=== PATIENT | female | born 1955 | race Caucasian/White ===

== ENCOUNTER 2018-05-18 14:41 | Outpatient (CLI) | payer OTHER ==
--- NOTE | 2018-05-19 08:43 | DEXA Report ---
Reason: POST MENOPAUSAL,SCREEN OSTEOPOROSIS Procedure Date: 05/18/2018 Accession Number: [id number] / [id number] Procedure: DEX - Dexa Spine and/or Hip CPT Code: FULL RESULT: EXAM: Dexa Spine and/or Hip DATE: 05/18/2018 3:13 PM CLINICAL HISTORY: POST MENOPAUSAL,SCREEN OSTEOPOROSIS TECHNIQUE: Dual energy x-ray absorptiometry (DXA) was performed on a [employer] System. Regions measured are the AP Spine, femoral neck, and if needed forearm. COMPARISON: None. In accordance with the International Society for Clinical Densitometry (ISCD) guidelines, data from previous exams may be reanalyzed using current recommendations and techniques. This is done to allow a more accurate basis for comparison with the current study. FINDINGS: The data for the lumbar spine is as follows: BMD (g/cm/cm) T-SCORE Z-SCORE REGION L1 1.071 -0.5 0.6 L2 1.093 -0.9 0.2 L3 1.127 -0.6 0.5 L4 1.091 -0.9 0.2 TOTAL 1.097 -0.7 0.4 NOTE: All evaluable vertebrae are used for classification The data for the hip is as follows: BMD (g/cm/cm) T-SCORE Z-SCORE REGION Neck 0.923 -0.8 0.3 TOTAL 0.858 -1.2 -0.3 NOTE: The femoral neck or total proximal femur, whichever is lowest, is used for classification. IMPRESSION: THE WHO CLASSIFICATION BASED ON THE INTERNATIONAL REFERENCE STANDARD IS OSTEOPENIA. THE FRACTURE RISK IS INCREASED. RECOMMENDATION: Patients with diagnosis of osteoporosis or osteopenia should have regular bone mineral density assessment. For those eligible for Medicare, routine testing is allowed once every 2 years. Testing frequency can be increased for patients who have rapidly progressing disease or for those who are receiving medical therapy to restore bone mass. COMMENT: World Health Organization (WHO) definitions for osteoporosis and osteopenia: NORMAL BMD: T-score at -1.0 or higher, fracture risk is low OSTEOPENIA BMD: T-score between -1.0 and -2.5, fracture risk is increased. OSTEOPOROSIS BMD: T-score at -2.5 or lower, fracture risk is high. National Osteoporosis Foundation recommends: 1. Obtain adequate dietary calcium (at least 1200 mg per day) and vitamin D (400-800 international units per day). 2. Participate, as appropriate, in regular weightbearing and muscle-strengthening exercise. 3. Avoid tobacco use and reduce alcohol and caffeine intake. 4. For more detailed information see the website at www.NOF.org.
== END 2018-05-18 14:42 | disposition home or self-care (01) ==
LOC: DI 14:41
PROVIDERS: ATTEND Naturopath
DX: Z13.820 Encounter for screening for osteoporosis (principal); M85.88 Other specified disorders of bone density and structure, other site; Z78.0 Asymptomatic menopausal state
CPT/HCPCS: 77080

== ENCOUNTER 2020-05-03 16:20 | Outpatient (CLI) | payer OTHER ==
--- NOTE | 2020-05-03 17:12 | XRAY Report ---
PROCEDURE: Knee Standing LT INDICATIONS: LEFT KNEE PAIN TECHNIQUE: 4 views of the left knee, and 1 view of the right knee. COMPARISON: None. FINDINGS: Bones: No acute fractures or dislocations. No suspicious bony lesions. There is mild narrowing of t he medial femorotibial compartments bilaterally. Soft tissues: No knee joint effusions. No suspicious soft tissue calcification. IMPRESSION: No acute osseous abnormality. 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 If there is clinical concern or persistent symptoms, additional imaging such as repeat radiographs or advance d imaging (e.g. CT, MRI) may be helpful for further evaluation. Reviewed by: Erik Call MD on 05/03/2020 5:11 PM PST Approved by: Erik Call MD on 05/03/2020 5:11 PM PST Station ID: [id number]
== END 2020-05-03 23:59 | disposition home or self-care (01) ==
LOC: DI.N 16:20
PROVIDERS: ATTEND Orthopaedic Surgery
DX: M25.562 Pain in left knee (principal); M17.12 Unilateral primary osteoarthritis, left knee

== ENCOUNTER 2020-05-09 15:42 | Outpatient (CLI) | payer OTHER ==
--- NOTE | 2020-05-10 13:01 | Mammography Report ---
BILATERAL DIGITAL SCREENING MAMMOGRAM 3D/2D: 05/09/2020 CLINICAL: Routine screening. Family history of breast cancer. Comparison is made to exams dated: 05/09/2019 mammogram, 04/14/2018 mammogram, 04/12/2017 mammogram, mammogram, 04/01/2015 mammogram, and 03/21/2014 mammogram - [facility]. There are scattered fibroglandular elements in both breasts. There is a possible new 0.3 cm oval equal density asymmetry in the right breast posterior depth super ior region seen on the mediolateral oblique view only. No other significant masses, calcifications, or other findings are seen in either breast. IMPRESSION: INCOMPLETE: NEEDS ADDITIONAL IMAGING EVALUATION The possible new 0.3 cm oval equal density asymmetry in the right breast is indeterminate. Additiona l views with possible ultrasound are recommended. This exam was interpreted at Station ID: [id number]. NOTE: For mammograms, a report in lay terms will be sent to the patient. Approximately 15% of breast malignancies will not be visualized mammographically. In the management of a palpable breast mass, a negative mammogram must not discourage biopsy of a clinically suspicious lesion. Electronically Signed By: Dami Funez M.D. aty/:05/10/2020 09:19:09 ACR BI-RADS Category 0: Incomplete 3340F PARENCHYMAL PATTERN: (A) - The breast(s) demonstrate(s) scattered fibroglandular densities. BI-RADS CATEGORY: (0) - 0 Mammo and [place] [id number] Immediate follow-up LATERALITY: (R)
== END 2020-05-09 15:43 | disposition home or self-care (01) ==
LOC: DI 15:42
DX: Z12.31 Encounter for screening mammogram for malignant neoplasm of breast (principal); Z80.3 Family history of malignant neoplasm of breast; N64.89 Other specified disorders of breast; M25.562 Pain in left knee

== ENCOUNTER 2020-05-28 09:05 | Outpatient (CLI) | payer OTHER ==
--- NOTE | 2020-05-29 15:09 | Ultrasound Report ---
LIMITED ULTRASOUND OF RIGHT BREAST AND AXILLA: 05/28/2020 CLINICAL: Patient returns today to evaluate a focal asymmetry in the right breast. Comparison is made to exams dated: 05/28/2020 mammogram, 05/09/2020 mammogram - [facility], 05/09/2019 mammogram, 04/14/2018 mammogram, 04/12/2017 mammogram, and 04/02/2016 mammogram - [facility]. Color flow ultrasound of the right breast 12 o'clock, and axilla regions was performed. Herrera scale i mages of the real-time examination were reviewed. There is a 0.5 cm x 0.6 cm x 0.3 cm irregular area of fibroglandular tissue in the right breast at 12 o'clock middle depth 3 cm from the nipple. This is surrounded by dense fibrous tissue. This irregu lar area of fibroglandular tissue displays no posterior acoustic shadowing or enhancement. This keira elates with mammography findings. Color flow imaging demonstrates that there is no vascularity prese nt. IMPRESSION: PROBABLY BENIGN The 0.5 cm x 0.6 cm x 0.3 cm irregular area of fibroglandular tissue in the right breast most likely is an island of tissue within fibrous tissue or a lymph node and is probably benign. A follow-up right mammogram and an ultrasound in 6 months is recommended to demonstrate stability. Findings and recommendations were conveyed to the patient at time of exam. This exam was interpreted at Station ID: [id number]. Electronically Signed By: Annamarie valente/:05/28/2020 11:46:51 Ultrasound BI-RADS: 3 Probably benign BI-RADS CATEGORY: (3) - 3 Mammo and [place] [id number] 6 month follow-up LATERALITY: (R)
--- NOTE | 2020-05-29 15:09 | Mammography Report ---
UNILATERAL RIGHT DIGITAL DIAGNOSTIC MAMMOGRAM 3D/2D: 05/28/2020 CLINICAL: Patient returns today to evaluate a focal asymmetry in the right breast. Comparison is made to exams dated: 05/09/2020 mammogram - [facility], 05/09/2019 [facility] mogram, 04/14/2018 mammogram, 04/12/2017 mammogram, and 04/02/2016 mammogram - [facility]. There are scattered fibroglandular elements in right breast. There is a 4 mm round equal density asymmetry in the right breast posterior depth superior region see n best on the mediolateral oblique view and confirmed with additional views. No other significant masses or calcifications are seen in the breast. IMPRESSION: INCOMPLETE: NEEDS ADDITIONAL IMAGING EVALUATION The 4 mm round equal density asymmetry in the right breast remains indeterminate. An ultrasound is r ecommended. This was performed immediately following this exam. This exam was interpreted at Station ID: [id number]. NOTE: For mammograms, a report in lay terms will be sent to the patient. Approximately 15% of breast malignancies will not be visualized mammographically. In the management of a palpable breast mass, a negative mammogram must not discourage biopsy of a clinically suspicious lesion. Electronically Signed By: Annamarie valente/:05/28/2020 11:43:06 ACR BI-RADS Category 0: Incomplete 3340F PARENCHYMAL PATTERN: (A) - The breast(s) demonstrate(s) scattered fibroglandular densities. BI-RADS CATEGORY: (0) - 0 Ultrasound [id number] Immediate follow-up LATERALITY: (B)
== END 2020-05-28 09:06 | disposition home or self-care (01) ==
LOC: DI 09:05
PROVIDERS: ATTEND Naturopath
DX: R92.2 Inconclusive mammogram (principal); N63.15 Unspecified lump in the right breast, overlapping quadrants

== ENCOUNTER 2020-06-03 13:57 | Outpatient (CLI) | payer OTHER ==
--- NOTE | 2020-06-03 16:22 | Ultrasound Report ---
PROCEDURE: Head or Neck Soft Tissue INDICATIONS: GOITER, ENLARGED THYROID TECHNIQUE: Real-time scanning was performed of the thyroid gland, with image documentation. COMPARISON: None FINDINGS: Right: Thyroid lobe measures 7.2 x 2.8 x 2.7 cm, and is homogeneous in echotexture. Left: Thyroid lobe measures 5.1 x 1.5 x 1.6 cm, and is homogenous in echotexture. Isthmus: 3 mm thick. Nodule number: One Location: Right inferior Size: 3.3 x 3.1 x 2.8 cm. Composition: Solid Echogenicity: Isoechoic Shape: wider than tall. Margins: Smooth Echogenic foci: Macrocalcifications Total points: 4 ACR TI-RADS category: 4 Nodule number: Two Location: Right mid lobe Size: 1.3 x 1.3 x 1.1 cm. Composition: Solid Echogenicity: Hypoechoic Shape: wider than tall. Margins: Smooth Echogenic foci: None Total points: 4 ACR TI-RADS category: 4 Nodule number: Three Location: Left mid lobe Size: 1.1 x 0.9 x 0.8 cm. Composition: Solid Echogenicity: Isoechoic Shape: wider than tall. Margins: Lobulated Echogenic foci: Macrocalcifications Total points: 4 ACR TI-RADS category: 4 Nodule number: Four Location: Left inferior posterior lobe Size: 0.9 x 0.8 x 0.8 cm. Composition: Size Echogenicity: Hypoechoic Shape: wider than tall. Margins: Lobulated Echogenic foci: None Total points: 4 ACR TI-RADS category: 4 IMPRESSION: 1. Lesion 1 is category 4. Secondary to size, fine-needle aspiration is recommended. 2. Lesions 2 and 3 are considered category 4. Secondary to size, follow-up at 1, 2, 3 and 5 years is recommended. 3. Lesion 4 is also category 4. However, secondary to small size, no additional follow-up is recommen ded unless indicated. ACR TI-RADS definitions and recommendations: TI-RADS 1 (benign): 0 points. FNA not needed. TI-RADS 2 (not suspicious): 2 points. FNA not needed. TI-RADS 3 (mildly suspicious): 3 points. ? FNA if 2.5 cm or larger, follow up if 1.5 cm or larger (at 1, 3, and 5 years). TI-RADS 4 (moderately suspicious): 4-6 points. ? FNA if 1.5 cm or larger, follow up if 1 cm or larger (at 1, 2, 3, and 5 years). TI-RADS 5 (highly suspicious): 7 points or more. ? FNA if 1 cm or larger, follow up if 0.5 cm or larger (every year for 5 years). Reviewed by: Tequila Raines MD on 06/03/2020 4:20 PM PDT Approved by: Tequila Raines MD on 06/03/2020 4:20 PM PDT Station ID: [id number]
== END 2020-06-03 13:58 | disposition home or self-care (01) ==
LOC: DI 13:57
DX: E04.9 Nontoxic goiter, unspecified (principal)

== ENCOUNTER 2020-10-01 07:25 | Outpatient (CLI) | payer MEDICARE ==
--- NOTE | 2020-10-01 10:47 | MRI Report ---
PROCEDURE: Knee LT W/O INDICATIONS: SPRAIN OF LEFT KNEE TECHNIQUE: Noncontrast sagittal PD fast spin echo and T2 fast spin echo with fat saturation, sagittal 3-D spoile d GE with fat saturation; coronal T1 spin echo and PD fast spin echo with fat saturation, and axial P D fast spin echo with fat saturation through the knee. COMPARISON: Left knee radiographs 05/03/2020. FINDINGS: Image quality: Excellent. Menisci: Mild intrasubstance signal is seen within the body and posterior horn of the medial meniscu s without definite extension to articular surface, compatible with intrasubstance degeneration. The l ateral meniscus is intact. There is no meniscal extrusion. Cruciate ligaments: The anterior and posterior cruciate ligaments appear intact. Medial structures: There is mild thickening of the proximal medial collateral ligament with trace martinez rrounding edema, which may represent a subacute to chronic low-grade sprain. The semimembranosus ten don insertions appear intact. Visualized portions of the pes anserinus tendons appear normal. Lateral structures: The lateral collateral ligament, long and short heads of the biceps femoris tend on appear intact. The popliteus tendon appears intact. Iliotibial band appears normal. Anterior structures: The quadriceps and patellar tendons appear intact. Patellar alignment is tawanda l. No femoral trochlear dysplasia or ventral trochlear prominence. No edema in the infrapatellar fa t pad. Bones and cartilage: No bone marrow contusion or acute fracture. There is mild grade 2 chondral mal acia in the weightbearing portion of the medial femoral condyle. The lateral compartment articular ca rtilages are intact. There is full-thickness cartilage loss at the median ridge and medial facet of t he patella and likely the inferior portion of the lateral patellar facet with subchondral edema. Jorge L tional full-thickness cartilage loss is seen in the medial femoral trochlea with subchondral and gamal inal osteophyte formation. Joint space and soft tissues: There is a physiologic amount of joint fluid. A trace medial popliteal cyst is present. There is no medial popliteal cyst. IMPRESSION: 1. Low-grade sprain of the proximal medial collateral ligament is likely subacute to chronic. 2. Mild intrasubstance degeneration in the medial meniscus without a discrete tear. 3. Multifocal full-thickness cartilage loss within the anterior compartment with subchondral edema a nd marginal osteophyte formation. Mild grade II chondromalacia in the medial compartment. Reviewed by: Erik Call MD on 10/01/2020 9:46 AM AYLA Approved by: Erik Call MD on 10/01/2020 9:46 AM AYLA Station ID: [id number]
== END 2020-10-01 07:26 | disposition home or self-care (01) ==
LOC: DI 07:25
PROVIDERS: ATTEND Orthopaedic Surgery Adult Reconstructive Orthopaedic Surgery
DX: S83.412D Sprain of medial collateral ligament of left knee, subsequent encounter (principal); M23.304 Other meniscus derangements, unspecified medial meniscus, left knee; M94.262 Chondromalacia, left knee

== ENCOUNTER 2022-02-13 08:46 | Outpatient (CLI) | payer MEDICARE ==
[2022-02-13 09:30] LABS: THYROID STIMULATING HORMONE 1.73 uIU/mL (0.34-5.60)
[2022-02-13 09:33] LABS: FREE T4 (FREE THYROXINE) 0.81 ng/dL (0.58-1.64)
== END 2022-02-13 08:47 | disposition home or self-care (01) ==
LOC: LAB 08:46
DX: E04.9 Nontoxic goiter, unspecified (principal)
CPT/HCPCS: 36415; 84439; 84443

== ENCOUNTER 2022-04-22 08:01 | Outpatient (CLI) | payer MEDICARE ==
[2022-04-22 08:50] LABS: THYROID STIMULATING HORMONE 0.85 uIU/mL (0.34-5.60)
[2022-04-22 08:52] LABS: FREE T4 (FREE THYROXINE) 0.81 ng/dL (0.58-1.64)
== END 2022-04-22 08:02 | disposition home or self-care (01) ==
LOC: LAB 08:01
PROVIDERS: ATTEND Internal Medicine
DX: R63.5 Abnormal weight gain (principal)
CPT/HCPCS: 36415; 82533; 84439; 84443; 84480

== ENCOUNTER 2022-05-05 09:48 | Outpatient (CLI) | payer MEDICARE ==
[2022-05-07 15:08] LABS: ANTINUCLEAR ANTIBODIES IFA Negative (.)
== END 2022-05-05 09:49 | disposition home or self-care (01) ==
LOC: LAB 09:48
PROVIDERS: ATTEND Physician Assistant
DX: L71.8 Other rosacea (principal)
CPT/HCPCS: 36415; 86038

== ENCOUNTER 2022-06-29 20:49 | Outpatient (CLI) | payer MEDICARE ==
--- NOTE | 2022-06-30 10:16 | Ultrasound Report ---
PROCEDURE: Head or Neck Soft Tissue INDICATIONS: GOITER TECHNIQUE: Real-time scanning was performed of the thyroid gland, with image documentation. COMPARISON: 06/03/2020 FINDINGS: Right: Thyroid lobe measures 6.3 x 2.5 x 2.7 cm, and is heterogeneous in echotexture. Left: Thyroid lobe measures 5.1 x 2.3 x 1.4cm, and is homogenous in echotexture. Isthmus: 3 mm thick. Nodule number: 1 Location: Right lower pole Size: 3.6 x 3.0 x 3.4 cm, previously 3.3 x 3.1 x 2.8 cm. Composition: Solid (2 points). Echogenicity: Hyperechoic (1 point). Shape: wider than tall. Margins: Lobulated / Irregular (2 points). Echogenic foci: Macrocalcification (1 point). Total points: 6 ACR TI-RADS category: Moderately suspicious (4-6 points). Nodule number: 2 Location: Right middle pole Size: 1.1 x 0.8 x 1.3 cm, previously 1.3 x 1.3 x 1.1 cm. Composition: Solid (2 points). Echogenicity: Hypoechoic (2 points). Shape: wider than tall. Margins: Smooth (0 points). Echogenic foci: None (0 points). Total points: 4 ACR TI-RADS category: Moderately suspicious (4-6 points). Nodule number: 3 Location: Left middle pole Size: 1.1 x 0.7 x 0.8 cm, previously 1.1 x 0.9 x 0.8 cm. Composition: Solid (2 points). Echogenicity: Hypoechoic (2 points). Shape: wider than tall. Margins: Lobulated / Irregular (2 points). Echogenic foci: Macrocalcification (1 point). Total points: 7 ACR TI-RADS category: Highly suspicious 7 points). Nodule number: 4 Location: Left lower pole Size: 1.1 x 0.9 x 1.2 cm, previously 0.9 x 0.8 x 0.8 cm. Composition: Solid (2 points). Echogenicity: Hypoechoic (2 points). Shape: wider than tall. Margins: Lobulated / Irregular (2 points). Echogenic foci: None (0 points). Total points: 6 ACR TI-RADS category: Moderately suspicious (4-6 points). IMPRESSION: 1. Multinodular goiter 2. Nodule 1, in the right lower pole, hence increased in size, and has maximum diameter of 3.6 cm. It s imaging characteristics are moderately suspicious. Ultrasound-guided FNA for tissue diagnosis is re commended. Please see chart. 3. FNA of nodule 3 is also recommended. It has a maximum diameter of 1.1 cm, and has imaging characte ristics which places it in the highly suspicious category. ACR TI-RADS definitions and recommendations: TI-RADS 1 (benign): 0 points. FNA not needed. TI-RADS 2 (not suspicious): 2 points. FNA not needed. TI-RADS 3 (mildly suspicious): 3 points. "FNA if 2.5 cm or larger, follow up if 1.5 cm or larger (at 1, 3, and 5 years). TI-RADS 4 (moderately suspicious): 4-6 points. "FNA if 1.5 cm or larger, follow up if 1 cm or larger (at 1, 2, 3, and 5 years). TI-RADS 5 (highly suspicious): 7 points or more. "FNA if 1 cm or larger, follow up if 0.5 cm or larger (every year for 5 years). Reviewed by: Johnson Anne MD on 06/30/2022 10:14 AM PDT Approved by: Johnson Anne MD on 06/30/2022 10:14 AM PDT Station ID: [id number]
== END 2022-06-29 20:50 | disposition home or self-care (01) ==
LOC: DI 20:49
PROVIDERS: ATTEND Internal Medicine
DX: E04.2 Nontoxic multinodular goiter (principal)

== ENCOUNTER → 2022-07-30 17:11 | Outpatient (CLI) | payer MEDICARE ==
--- NOTE | 2022-07-30 14:52 | XRAY Report ---
PROCEDURE: Hip 2 View LT INDICATIONS: LEFT HIP PAIN TECHNIQUE: 2 views of the hip were acquired. COMPARISON: None. FINDINGS: Bones: No fractures or dislocations. No suspicious bony lesions. Mild bilateral degenerative hip joint space narrowing, left greater than right. No erosions. Soft tissues: No suspicious soft tissue calcifications or masses. Appearing calcifications are not ed overlying the pelvis which could representing calcified fibroids. IMPRESSION: Early arthritic changes within the hips bilaterally. Reviewed by: Tequila Raines MD on 07/30/2022 2:51 PM PDT Approved by: Tequila Raines MD on 07/30/2022 2:51 PM PDT Station ID: [id number]
== END | disposition home or self-care (01) ==
LOC: DI.WOS 17:11
PROVIDERS: ATTEND Physician Assistant Surgical
DX: M16.0 Bilateral primary osteoarthritis of hip (principal)

== ENCOUNTER 2022-08-13 09:24 | Outpatient (CLI) | payer MEDICARE ==
--- NOTE | 2022-08-14 09:47 | Mammography Report ---
BILATERAL DIGITAL DIAGNOSTIC MAMMOGRAM 3D/2D: 08/13/2022 CLINICAL: 1 year follow up of the right breast, due for bilateral imaging. Comparison is made to exams dated: 05/28/2020 mammogram, 05/09/2020 mammogram - [facility], 05/09/2019 mammogram, 04/12/2017 mammogram - [facility], 07/09/2021 mammogram, and 07/09/2021 ultrasound - [facility]. There are scattered areas of fibroglandular density in both breasts (category b / 25%-50% glandular t issue). There is a stable 4 mm asymmetry in the right breast posterior depth superior region seen on the medi olateral oblique view only. No other significant masses, calcifications, or other findings are seen in either breast. IMPRESSION: INCOMPLETE: NEEDS ADDITIONAL IMAGING EVALUATION The stable asymmetry in the right breast is indeterminate. A targeted ultrasound is recommended and will immediately follow. Based on the Tyrer Cuzick model (a risk assessment model) the patients lifetime risk is 17.4% and he r 10 year risk is 9.0%. According to the ACR, ACS, and NCCN guidelines, an annual breast MRI exam robert ng with mammogram is recommended if the patients lifetime risk is 20% or greater. This exam was interpreted at Station ID: [id number]. NOTE: For mammograms, a report in lay terms will be sent to the patient. Approximately 15% of breast malignancies will not be visualized mammographically. In the management of a palpable breast mass, a negative mammogram must not discourage biopsy of a clinically suspicious lesion. Electronically Signed By: Martin Barahona M.D. slc/:08/13/2022 09:54:16 ACR BI-RADS Category 0: Incomplete 3340F PARENCHYMAL PATTERN: (A) - The breast(s) demonstrate(s) scattered fibroglandular densities. BI-RADS CATEGORY: (0) - 0 Ultrasound [id number] Immediate follow-up LATERALITY: (B)
--- NOTE | 2022-08-14 09:48 | Ultrasound Report ---
LIMITED ULTRASOUND OF RIGHT BREAST: 08/13/2022 CLINICAL: 1 year follow up of the right breast. Comparison is made to exams dated: 08/13/2022 mammogram - [facility], 07/09/2021 mamm ogram, 07/09/2021 ultrasound - [facility], 05/28/2020 ultrasound, and 05/28/2020 mammogram - [facility]. Color flow ultrasound of the right breast 12 o'clock region was performed. Herrera scale images of the real-time examination were reviewed. There is a 0.3 cm x 0.3 cm x 0.2 cm oval complicated cyst in the right breast at 12 o'clock middle de pth 3 cm from the nipple. This oval complicated cyst is hypoechoic. This abnormality is decreased i n size. Color flow imaging demonstrates that there is no vascularity present. IMPRESSION: BENIGN There is no sonographic evidence of malignancy. The 0.3 cm complicated cyst in the right breast is decreased in size and demonstrates no interval jimenez wth over 2 years and is benign. Exam findings were conveyed to the patient. A 1 year screening mammogram is recommended. This exam was interpreted at Station ID: [id number]. Electronically Signed By: Martin Barahona M.D. slc/:08/13/2022 10:22:41 Ultrasound BI-RADS: 2 Benign BI-RADS CATEGORY: (2) - 2 Mammogram [id number] 1 year screening LATERALITY: (B)
== END 2022-08-13 09:25 | disposition home or self-care (01) ==
LOC: DI 09:24
PROVIDERS: ATTEND Physician Assistant
DX: N60.01 Solitary cyst of right breast (principal)

== ENCOUNTER 2023-06-15 10:15 | Outpatient (CLI) | payer MEDICARE ==
--- NOTE | 2023-06-15 19:07 | Ultrasound Report ---
PROCEDURE: Soft Tissue Head or Neck INDICATIONS: MULTIPLE THYROID NODULES, GOITER TECHNIQUE: Real-time scanning was performed of the thyroid gland, with image documentation. COMPARISON: 06/29/2022 FINDINGS: Right: Thyroid lobe measures 7.4 x 2.8 x 2.4 cm, and is homogeneous in echotexture. Left: Thyroid lobe measures 4.9 x 1.7 x 1.6 cm, and is homogenous in echotexture. Isthmus: 0.26 cm thick. Nodule number: One Location: Right inferior Size: 3.6 x 3.2 cm, previously 3.6 x 3.0 x 3.4 cm. Composition: Solid. Echogenicity: Hyperechoic. Shape: wider than tall (0 points). Margins: Lobulated. Echogenic foci: None (0 points). Total points: 5 ACR TI-RADS category: 4 Nodule number: Two Location: Right mid Size: 1.4 x 0.9 x 1.5 cm, previously 1.1 x 0.8 x 1.1 cm. Composition: Spongiform. Echogenicity: Isoechoic. Shape: wider than tall (0 points). Margins: Smooth (0 points). Echogenic foci: None (0 points). Total points: 1 ACR TI-RADS category: 2 Nodule number: Three Location: Left mid Size: 0.8 x 0.8 x 0.6 cm, previously 1.1 x 0.7 x 0.8 cm. Composition: Solid. Echogenicity: Isoechoic. Shape: wider than tall (0 points). Margins: Lobulated. Echogenic foci: None (0 points). Total points: 5 ACR TI-RADS category: 4 Nodule number: Four Location: Left inferior Size: 1.0 x 0.9 x 0.8 cm, previously 1.1 x 0.9 x 1.2 cm. Composition: Solid. Echogenicity: Isoechoic. Shape: wider than tall (0 points). Margins: Smooth (0 points). Echogenic foci: None (0 points). Total points: 3 ACR TI-RADS category: 3 IMPRESSION: Persistent moderately suspicious solid nodule 1. Best practice guidelines suggest FNA if not already done. Other nodules are stable in size. Continued follow-up schedule ACR TI-RADS definitions and recommendations: TI-RADS 1 (benign): 0 points. FNA not needed. TI-RADS 2 (not suspicious): 2 points. FNA not needed. TI-RADS 3 (mildly suspicious): 3 points. "FNA if 2.5 cm or larger, follow up if 1.5 cm or larger (at 1, 3, and 5 years). TI-RADS 4 (moderately suspicious): 4-6 points. "FNA if 1.5 cm or larger, follow up if 1 cm or larger (at 1, 2, 3, and 5 years). TI-RADS 5 (highly suspicious): 7 points or more. "FNA if 1 cm or larger, follow up if 0.5 cm or larger (every year for 5 years). Reviewed by: Clay Jimenez MD on 06/15/2023 6:06 PM AYLA Approved by: Clay Jimenez MD on 06/15/2023 6:06 PM AYLA Station ID: [id number]
== END 2023-06-15 10:16 | disposition home or self-care (01) ==
LOC: DI 10:15
PROVIDERS: ATTEND Internal Medicine
DX: E04.2 Nontoxic multinodular goiter (principal)

== ENCOUNTER 2023-07-13 15:38 | Outpatient (CLI) | payer MEDICARE ==
--- NOTE | 2023-07-13 16:54 | XRAY Report ---
PROCEDURE: Chest 2V INDICATIONS: ACUTE UPPER RESPIRATORY INFECTION TECHNIQUE: 2 views of the chest were acquired. COMPARISON: None. FINDINGS: Surgical changes and devices: None. Lungs and pleura: No pleural effusions or pneumothorax. Bilateral middle lobe and lingula patchy con solidation, best seen in the lateral view. Mediastinum: Mediastinal contours appear normal. Heart size is normal. Bones and chest wall: No suspicious bony lesions. Overlying soft tissues appear unremarkable. Mul tilevel degenerative changes of the spine. IMPRESSION: Bilateral middle lobe and lingula patchy consolidation suggestive of multifocal infection. Recommend radiographic follow-up to document improvement and rule out underlying neoplasm. Reviewed by: Naveed Raman MD on 07/13/2023 4:53 PM PDT Approved by: Naveed Raman MD on 07/13/2023 4:53 PM PDT Station ID: [id number]
== END 2023-07-13 15:39 | disposition home or self-care (01) ==
LOC: DI 15:38
PROVIDERS: ATTEND Nurse Practitioner
DX: J06.9 Acute upper respiratory infection, unspecified (principal)

== ENCOUNTER 2023-09-20 09:49 | Outpatient (CLI) | payer MEDICARE ==
--- NOTE | 2023-09-20 17:15 | DEXA Report ---
PROCEDURE: Dexa Spine and/or Hip INDICATIONS: POST MENOPAUSAL TECHNIQUE: Dual energy x-ray absorptiometry (DXA) was performed on a [employer] System. Regions measur ed are the AP Spine, femoral neck, and if needed forearm. COMPARISON: 05/18/2018 FINDINGS: Lumbar Spine: Bone Mineral Density: 1.10 g/cm/cm,T score: -0.7. Previously -0.7 Left Femoral Neck: Bone Mineral Density: 0.86 g/cm/cm, T score: -1.3, previously -0.8. Left Hip: Bone Mineral Density: 0.88 g/cm/cm,T score: -1. Previously -1.2 (T score greater or equal to -1.0: NORMAL) (T score from -1.1 to -2.4: OSTEOPENIA) (T score less than or equal to -2.5 to: OSTEOPOROSIS) Impression: By WHO criteria, this patient has low bone density (osteopenia). Similar T-scores in the lumbar spine and left hip as a whole. Left femoral neck T score has decreased . Patients with diagnosis of osteoporosis or osteopenia should have regular bone mineral density assess ment. For those eligible for Medicare, routine testing is allowed once every 2 years. Testing frequ ency can be increased for patients who have rapidly progressing disease or for those who are receivin g medical therapy to restore bone mass. Reviewed by: Angel Clayton MD on 09/20/2023 5:13 PM PDT Approved by: Angel Clayton MD on 09/20/2023 5:13 PM PDT Station ID: [id number]
== END 2023-09-20 09:50 | disposition home or self-care (01) ==
LOC: DI 09:49
PROVIDERS: ATTEND Naturopath
DX: M85.89 Other specified disorders of bone density and structure, multiple sites (principal); Z78.0 Asymptomatic menopausal state

== ENCOUNTER 2023-10-01 07:44 | Outpatient (CLI) | payer MEDICARE ==
[2023-10-01 08:05] LABS: BASOPHILS % (AUTO) 0.9 %; EOSINOPHILS # (AUTO) 0.1 10^3/uL (0.0-0.7); HCT - HEMATOCRIT 43.5 % (37.0-47.0); HGB - HEMOGLOBIN 14.2 g/dL (12.0-16.0); LYMPHOCYTES # (AUTO) 1.4 10^3/uL (1.5-3.5); LYMPHOCYTES % (AUTO) 33.5 %; MEAN CORPUSCULAR HEMOGLOBIN 32.1 pg (27.0-31.0); MEAN CORPUSCULAR HGB CONC 32.6 g/dL (32.0-36.0); MEAN CORPUSCULAR VOLUME 98.2 fL (81.0-99.0); MEAN PLATELET VOLUME 10.5 fL (7.9-10.8); MONOCYTES # (AUTO) 0.3 10^3/uL (0.0-1.0); MONOCYTES % (AUTO) 6.8 %; NEUTROPHILS # (AUTO) 2.4 10^3/uL (1.5-6.6); NEUTROPHILS % (AUTO) 55.8 %; PLT - PLATELET COUNT 195 10^3/uL (130-450); RED BLOOD COUNT 4.43 10^6/uL (4.20-5.40); RED CELL DISTRIBUTION WIDTH 12.7 % (12.0-15.0); WHITE BLOOD COUNT 4.3 x10^3/uL (4.8-10.8)
[2023-10-01 08:14] LABS: ALBUMIN 4.1 g/dL (3.2-5.5); ALBUMIN/GLOBULIN RATIO 1.4 (1.0-2.2); ALKALINE PHOSPHATASE 66 IU/L (42-121); ALT ALANINE AMINOTRANSFERASE 12 IU/L (10-60); AST ASPARTATE AMINOTRANSFERASE 17 IU/L (10-42); BILIRUBIN,TOTAL 1.4 mg/dL (0.2-1.0); BUN - BLOOD UREA NITROGEN 14 mg/dL (6-20); CALCIUM 9.5 mg/dL (8.5-10.3); CARBON DIOXIDE - CO2 30 mmol/L (21-32); CHLORIDE 106 mmol/L (101-111); CHOL/HDL RATIO 3.5 (<4.4); CHOLESTEROL 228 mg/dL; CREATININE 0.7 mg/dL (0.6-1.3); GFR - MDRD 83 (>89); GLUCOSE 96 mg/dL (74-104); HDL CHOLESTEROL 65 mg/dL; LDL CHOLESTEROL,CALCULATED 142 mg/dL; LDL/HDL RATIO 2.2 (<4.4); POTASSIUM 4.2 mmol/L (3.5-4.5); SODIUM 140 mmol/L (135-145); TRIGLYCERIDES 104 mg/dL; VLDL CHOLESTEROL 21 mg/dL
== END 2023-10-01 07:45 | disposition home or self-care (01) ==
LOC: LAB 07:44
PROVIDERS: ATTEND Naturopath
DX: Z00.00 Encounter for general adult medical examination without abnormal findings (principal); E78.00 Pure hypercholesterolemia, unspecified
CPT/HCPCS: 36415; 80053; 80061; 83721; 85025

== ENCOUNTER 2023-11-23 12:11 | Outpatient (CLI) | payer MEDICARE ==
[2023-11-23 12:57] LABS: THYROID STIMULATING HORMONE 0.8 uIU/mL (0.34-5.60)
[2023-11-24 04:10] LABS: APOLIPOPROTEIN B 99 mg/dL (<90)
== END 2023-11-23 12:12 | disposition home or self-care (01) ==
LOC: LAB 12:11
PROVIDERS: ATTEND Naturopath
DX: E78.00 Pure hypercholesterolemia, unspecified (principal); E06.3 Autoimmune thyroiditis
CPT/HCPCS: 36415; 81599; 82172; 84439; 84443; 84481; 86038; 86376; 86800